=== PATIENT | female | born 1975 | race Caucasian/White ===

== ENCOUNTER 2016-11-19 16:18 | Emergency (ER) | payer SELFPAY ==
[2016-11-19 16:37] VITALS: O2SAT 94
[2016-11-19] MEDS ORDERED: LIDOCAINE VIS-MYLANTA 30 ML UD PO ONE (16:52)
[2016-11-19] MEDS ORDERED: MORPHINE SULFATE INJ 10 MG/ML VIAL IV ONE (17:40)
[2016-11-19] MEDS ORDERED: SIMETHICONE 40 MG/0.6 ML PO ONE (17:42)
--- NOTE | 2016-11-19 18:02 | RAD ---
EXAM DESCRIPTION: Chest,1 View CLINICAL HISTORY: 41 years, Female, Fell out of 20 ft deer stand. COMPARISON: Images only from a Two-view chest x-ray dated 05/24/2014. FINDINGS: An upright portable frontal chest radiograph was performed. The lungs are moderately expanded and clear aside from scarring in the LEFT lower lung, similar to the prior study. The costophrenic sulci are sharp. The cardiac silhouette, hilar regions, trachea, soft tissues and bony structures are unremarkable. In particular, no rib fracture is identified. No pneumothorax is seen. Images are degraded by portable technique and large patient body habitus. IMPRESSION: No evidence of acute traumatic thoracic injury. LEFT lung scarring. Electronically signed by: Trina Daily MD 11/19/2016 6:00 PM ELECTROMEDICAL EQUIPMENT REPAIRER
[2016-11-19] MEDS ORDERED: SIMETHICONE 80 MG TAB ONE (18:34)
[2016-11-19] MEDS ORDERED: SIMETHICONE 80 MG TAB PO ONE (18:38)
[2016-11-19] MEDS ORDERED: OMEPRAZOLE CAP 20 MG CAP PO ONE (19:12)
[2016-11-19] MEDS ORDERED: diazePAM INJ 10 MG/2 ML SYG IV ONE (19:23)
--- NOTE | 2016-11-19 19:29 | ED.PDOC ---
History of Present Illness - General Chief Complaint: General Stated Complaint: pain when swallowing Time Seen by Provider: 11/19/16 17:22 Source: patient, family Exam Limitations: no limitations Additional Information: ONSET YESTERDAY. EPIGASTRIC PAIN WHEN SWALLOWS (6/10). 4/10 PAIN AT REST. TRIED ZANTAC, ROLAIDS, MAALOX; NONE HELPED. PT STATES SHE FEELS THOUGH THERE I8S A MASS IN HER LOWER STERNUM. FEELS THOUGH FOOD WILL GET STUCK BUT IT DOES NOT. NO VOMITING. NO H/O GERD. IS PASSING NL FLATULENCE, BELCHING, HAD NL BM THIS AM. - History of Present Illness Improving Factors: nothing Worsening Factors: eating Associated Symptoms: denies symptoms Allergies/Adverse Reactions: Allergies Ciprofloxacin [From Cipro] Allergy (Verified 03/13/16 15:59) Hydromorphone [From Dilaudid] Allergy (Verified 03/13/16 15:59) Nalbuphine [From Nubain] Allergy (Verified 03/13/16 15:59) Promethazine [From Phenergan] Allergy (Verified 03/13/16 15:59) Sulfamethoxazole w/Trimethoprim [From Bactrim] Allergy (Verified 03/13/16 15:59) Home Medications: Ambulatory Orders ALPRAZolam [Xanax] 1 mg PO TID PRN 06/27/13 Phentermine HCl 37.5 mg PO DAILY 03/13/16 Tramadol HCl 50 mg PO PRN 03/13/16 Triamterene & Hydrochlorothiaz [Dyazide 37.5-25 mg] 1 cap PO DAILY 03/13/16 Dicyclomine HCl [Bentyl] 20 mg PO PRN 11/19/16 Fluoxetine HCl [PROzac] 20 mg PO DAILY 11/19/16 Review of Systems - Review of Systems Constitutional: States: no symptoms reported EENTM: Denies: ear pain, nose congestion, throat swelling, mouth pain, mouth swelling Respiratory: Denies: cough, short of breath, stridor, wheezing Cardiology: States: no symptoms reported Gastrointestinal/Abdominal: Denies: abdominal pain, constipation, diarrhea, nausea, vomiting Genitourinary: States: no symptoms reported Musculoskeletal: States: no symptoms reported Skin: States: no symptoms reported Neurological: States: no symptoms reported Endocrine: States: no symptoms reported Hematologic/Lymphatic: States: no symptoms reported All other Systems: Reviewed and Negative Past Medical History (General) - Patient Medical History Hx Stroke: No Hx Asthma: Yes Hx Congestive Heart Failure: Yes Hx Hypertension: Yes Hx Thyroid Disease: No Hx Diabetes: No Surgical History: cholecystectomy, Hysterectomy - Vaccination History Hx Tetanus, Diphtheria Vaccination: Yes Hx Influenza Vaccination: No Hx Pneumococcal Vaccination: No - Social History Hx Tobacco Use: No Hx Alcohol Use: Yes Hx Depression: Yes - Female History Patient : No - hysterectomy Family Medical History - Family History Mother Family History: Unknown Hx Cardiac Disease: Yes Hx Family Diabetes: Yes Physical Exam - Physical Exam General Appearance: Anxious - ANXIOUS D/T PAIN. NO RESPIRATORY DISTRESS., Well Nourished Eye Exam: bilateral normal Ears, Nose, Throat: hearing grossly normal, normal ENT inspection, normal pharynx Neck: non-tender, full range of motion, supple Respiratory: chest non-tender, lungs clear, normal breath sounds Cardiovascular/Chest: normal peripheral pulses, regular rate, rhythm, other - STERNUM NTTP. Gastrointestinal/Abdominal: normal bowel sounds, non tender, soft, no organomegaly, no pulsatile mass, other - OBESE. 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 THUS GAVE MORPHINE AND SIMETHICONE. DIDN'T HELP. EKG, CXR, CBC, CMP, TROP NEG. PAIN PERSISTED DESPITE ABOVE TX AND PT STATED SHE IS CONVINCED THERE IS SOMETHING WRONG SUCH A MASS IN INFERIOR STERNUM/EPIGASTRIC, THUS ORDERED CT OF CHEST AND ABD, WAS NEG. GAVE OMEPRAZOLE AND VALIUM, WHICH DECREASED PAIN AT REST FROM 4/10 TO 0/10 ( PAIN WITH SWALLOWING STILL 6/10). DDX: EPHAGEAL CANCER VS GERD VS ACHALASIA VS EOSINOPHILIC ESPHAGITIS VS ESOPHAGEAL STRICTURE VS POTTER'S VS ESOPHAGEAL/GASTRIC ULCER. ETX UNCLEAR FROM EXTENSIVE E.D. WORKUP, THUS REFERRED TO Kathy AND INFORMED PT SHE WILL NEED AND EGD TO VISUALIZE. PT PREFERS TO SEE THE GI DR IN [place] WHERE SHE LIVES AND SAID SHE WILL CONTACT HIM. SAFE FOR DC TO HOME. 11/19/16 20:56 Departure - Departure Clinical Impression: Spasm of esophagus, Epigastric pain Disposition: Discharge to Home or Self Care Condition: Fair Departure Forms: ED Discharge - Pt. Copy, Patient Portal Self Enrollment Instructions: Esophageal Dysphagia Diet: other - Drink plenty of fluids but don't worry about eating a lot of meals until this improves. Activity: increase activity as tolerated Home Medications: Ambulatory Orders ALPRAZolam [Xanax] 1 mg PO TID PRN 06/27/13 Phentermine HCl 37.5 mg PO DAILY 03/13/16 Tramadol HCl 50 mg PO PRN 03/13/16 Triamterene & Hydrochlorothiaz [Dyazide 37.5-25 mg] 1 cap PO DAILY 03/13/16 Dicyclomine HCl [Bentyl] 20 mg PO PRN 11/19/16 Fluoxetine HCl [PROzac] 20 mg PO DAILY 11/19/16 Additional Instructions: Please see the [facility] doctor in [place] or your regular doctor. Please take Nexium 40 mg daily to see if it will help ease the discomfort. Please avoid ibuprofen, aleve, advil, and motrin, as they can cause stomach and esophageal pain. Tylenol is okay.
--- NOTE | 2016-11-19 20:08 | CT ---
EXAM: Abdoment/Pelvis w/o Contrast (accession [id number]), Chest w/o Contrast (accession [id number]) CLINICAL INDICATION: 41 year-old female with acute sternal and epigastric pain. COMPARISON: None. EXAMINATION: CT of the chest, abdomen and pelvis was performed without intravenous or oral contrast. Multiplanar reformatted images were provided. FINDINGS: Evaluation of solid organ pathology is limited secondary to lack of intravenous contrast. Within these limitations, the following observations are made. Chest: Evaluation through the lungs reveal no focal opacity, pleural effusion or pneumothorax. Heart size is within normal limits. No pericardial effusion. Abdomen and pelvis: Borderline hepatomegaly measuring 19.6 cm and diffuse hepatic steatosis. The liver, pancreas, spleen, bilateral kidneys and bilateral adrenal glands are otherwise within normal limits. Surgical clips present at the level of the gallbladder fossa status post cholecystectomy. The vessels are normal in caliber. No abdominopelvic lymph nodes are noted to be pathologically enlarged by CT measurement criteria. The bowel is within normal limits with extensive fecal debris present throughout the large bowel. There is no abnormal bowel wall thickness or bowel dilation. No free air. No free abdominopelvic fluid collections. The appendix is within normal limits. The osseous structures are within normal limits. Nonspecific slight prominence of the level of the right side anus. No surrounding inflammatory change to suggest abscess formation. IMPRESSION: 1. No specific acute intra-abdominal findings are noted to suggest etiology of the patient's abdominal pain.2. Borderline hepatomegaly and diffuse hepatic steatosis.3. Nonspecific slight prominence of the level of the right side anus. Electronically signed by: Janet Fernandez MD 11/19/2016 8:07 PM POULTRY PROCESSOR
[2016-11-19 21:09] VITALS: BP 122/87; TEMP 97
--- NOTE | 2016-11-23 14:09 | CT ---
EXAM: Abdoment/Pelvis w/o Contrast (accession [id number]), Chest w/o Contrast (accession [id number]) CLINICAL INDICATION: 41 year-old female with acute sternal and epigastric pain. COMPARISON: None. EXAMINATION: CT of the chest, abdomen and pelvis was performed without intravenous or oral contrast. Multiplanar reformatted images were provided. FINDINGS: Evaluation of solid organ pathology is limited secondary to lack of intravenous contrast. Within these limitations, the following observations are made. Chest: Evaluation through the lungs reveal no focal opacity, pleural effusion or pneumothorax. Heart size is within normal limits. No pericardial effusion. Abdomen and pelvis: Borderline hepatomegaly measuring 19.6 cm and diffuse hepatic steatosis. The liver, pancreas, spleen, bilateral kidneys and bilateral adrenal glands are otherwise within normal limits. Surgical clips present at the level of the gallbladder fossa status post cholecystectomy. The vessels are normal in caliber. No abdominopelvic lymph nodes are noted to be pathologically enlarged by CT measurement criteria. The bowel is within normal limits with extensive fecal debris present throughout the large bowel. There is no abnormal bowel wall thickness or bowel dilation. No free air. No free abdominopelvic fluid collections. The appendix is within normal limits. The osseous structures are within normal limits. Nonspecific slight prominence of the level of the right side anus. No surrounding inflammatory change to suggest abscess formation. IMPRESSION: 1. No specific acute intra-abdominal findings are noted to suggest etiology of the patient's abdominal pain.2. Borderline hepatomegaly and diffuse hepatic steatosis.3. Nonspecific slight prominence of the level of the right side anus. Electronically signed by: Janet Fernandez MD 11/19/2016 8:07 PM TAPING MACHINE OPERATOR
--- NOTE | 2016-12-17 23:48 | CT ---
EXAM: Abdoment/Pelvis w/o Contrast (accession [id number]), Chest w/o Contrast (accession [id number]) CLINICAL INDICATION: 41 year-old female with acute sternal and epigastric pain. COMPARISON: None. EXAMINATION: CT of the chest, abdomen and pelvis was performed without intravenous or oral contrast. Multiplanar reformatted images were provided. FINDINGS: Evaluation of solid organ pathology is limited secondary to lack of intravenous contrast. Within these limitations, the following observations are made. Chest: Evaluation through the lungs reveal no focal opacity, pleural effusion or pneumothorax. Heart size is within normal limits. No pericardial effusion. Abdomen and pelvis: Borderline hepatomegaly measuring 19.6 cm and diffuse hepatic steatosis. The liver, pancreas, spleen, bilateral kidneys and bilateral adrenal glands are otherwise within normal limits. Surgical clips present at the level of the gallbladder fossa status post cholecystectomy. The vessels are normal in caliber. No abdominopelvic lymph nodes are noted to be pathologically enlarged by CT measurement criteria. The bowel is within normal limits with extensive fecal debris present throughout the large bowel. There is no abnormal bowel wall thickness or bowel dilation. No free air. No free abdominopelvic fluid collections. The appendix is within normal limits. The osseous structures are within normal limits. Nonspecific slight prominence of the level of the right side anus. No surrounding inflammatory change to suggest abscess formation. IMPRESSION: 1. No specific acute intra-abdominal findings are noted to suggest etiology of the patient's abdominal pain.2. Borderline hepatomegaly and diffuse hepatic steatosis.3. Nonspecific slight prominence of the level of the right side anus. Electronically signed by: Janet Fernandez MD 11/19/2016 8:07 PM CLASSROOM MONITOR
--- NOTE | 2016-12-17 23:48 | CT ---
EXAM: Abdoment/Pelvis w/o Contrast (accession [id number]), Chest w/o Contrast (accession [id number]) CLINICAL INDICATION: 41 year-old female with acute sternal and epigastric pain. COMPARISON: None. EXAMINATION: CT of the chest, abdomen and pelvis was performed without intravenous or oral contrast. Multiplanar reformatted images were provided. FINDINGS: Evaluation of solid organ pathology is limited secondary to lack of intravenous contrast. Within these limitations, the following observations are made. Chest: Evaluation through the lungs reveal no focal opacity, pleural effusion or pneumothorax. Heart size is within normal limits. No pericardial effusion. Abdomen and pelvis: Borderline hepatomegaly measuring 19.6 cm and diffuse hepatic steatosis. The liver, pancreas, spleen, bilateral kidneys and bilateral adrenal glands are otherwise within normal limits. Surgical clips present at the level of the gallbladder fossa status post cholecystectomy. The vessels are normal in caliber. No abdominopelvic lymph nodes are noted to be pathologically enlarged by CT measurement criteria. The bowel is within normal limits with extensive fecal debris present throughout the large bowel. There is no abnormal bowel wall thickness or bowel dilation. No free air. No free abdominopelvic fluid collections. The appendix is within normal limits. The osseous structures are within normal limits. Nonspecific slight prominence of the level of the right side anus. No surrounding inflammatory change to suggest abscess formation. IMPRESSION: 1. No specific acute intra-abdominal findings are noted to suggest etiology of the patient's abdominal pain.2. Borderline hepatomegaly and diffuse hepatic steatosis.3. Nonspecific slight prominence of the level of the right side anus. Electronically signed by: Janet Fernandez MD 11/19/2016 8:07 PM REMOTE ENCODING CENTER MANAGER
--- NOTE | 2016-12-18 08:23 | CT ---
EXAM: Abdoment/Pelvis w/o Contrast (accession [id number]), Chest w/o Contrast (accession [id number]) CLINICAL INDICATION: 41 year-old female with acute sternal and epigastric pain. COMPARISON: None. EXAMINATION: CT of the chest, abdomen and pelvis was performed without intravenous or oral contrast. Multiplanar reformatted images were provided. FINDINGS: Evaluation of solid organ pathology is limited secondary to lack of intravenous contrast. Within these limitations, the following observations are made. Chest: Evaluation through the lungs reveal no focal opacity, pleural effusion or pneumothorax. Heart size is within normal limits. No pericardial effusion. Abdomen and pelvis: Borderline hepatomegaly measuring 19.6 cm and diffuse hepatic steatosis. The liver, pancreas, spleen, bilateral kidneys and bilateral adrenal glands are otherwise within normal limits. Surgical clips present at the level of the gallbladder fossa status post cholecystectomy. The vessels are normal in caliber. No abdominopelvic lymph nodes are noted to be pathologically enlarged by CT measurement criteria. The bowel is within normal limits with extensive fecal debris present throughout the large bowel. There is no abnormal bowel wall thickness or bowel dilation. No free air. No free abdominopelvic fluid collections. The appendix is within normal limits. The osseous structures are within normal limits. Nonspecific slight prominence of the level of the right side anus. No surrounding inflammatory change to suggest abscess formation. IMPRESSION: 1. No specific acute intra-abdominal findings are noted to suggest etiology of the patient's abdominal pain.2. Borderline hepatomegaly and diffuse hepatic steatosis.3. Nonspecific slight prominence of the level of the right side anus. Electronically signed by: Janet Fernandez MD 11/19/2016 8:07 PM SIEBEL ARCHITECT
--- NOTE | 2016-12-18 08:23 | CT ---
EXAM: Abdoment/Pelvis w/o Contrast (accession [id number]), Chest w/o Contrast (accession [id number]) CLINICAL INDICATION: 41 year-old female with acute sternal and epigastric pain. COMPARISON: None. EXAMINATION: CT of the chest, abdomen and pelvis was performed without intravenous or oral contrast. Multiplanar reformatted images were provided. FINDINGS: Evaluation of solid organ pathology is limited secondary to lack of intravenous contrast. Within these limitations, the following observations are made. Chest: Evaluation through the lungs reveal no focal opacity, pleural effusion or pneumothorax. Heart size is within normal limits. No pericardial effusion. Abdomen and pelvis: Borderline hepatomegaly measuring 19.6 cm and diffuse hepatic steatosis. The liver, pancreas, spleen, bilateral kidneys and bilateral adrenal glands are otherwise within normal limits. Surgical clips present at the level of the gallbladder fossa status post cholecystectomy. The vessels are normal in caliber. No abdominopelvic lymph nodes are noted to be pathologically enlarged by CT measurement criteria. The bowel is within normal limits with extensive fecal debris present throughout the large bowel. There is no abnormal bowel wall thickness or bowel dilation. No free air. No free abdominopelvic fluid collections. The appendix is within normal limits. The osseous structures are within normal limits. Nonspecific slight prominence of the level of the right side anus. No surrounding inflammatory change to suggest abscess formation. IMPRESSION: 1. No specific acute intra-abdominal findings are noted to suggest etiology of the patient's abdominal pain.2. Borderline hepatomegaly and diffuse hepatic steatosis.3. Nonspecific slight prominence of the level of the right side anus. Electronically signed by: Janet Fernandez MD 11/19/2016 8:07 PM FUR OPERATOR
== END 2016-11-19 21:08 | disposition home or self-care (01) ==
LOC: ER 16:18
DX: K22.4 Dyskinesia of esophagus (principal); R10.13 Epigastric pain; Z88.3 Allergy status to other anti-infective agents; Z88.2 Allergy status to sulfonamides; Z88.6 Allergy status to analgesic agent; Z79.899 Other long term (current) drug therapy; I11.0 Hypertensive heart disease with heart failure; I50.9 Heart failure, unspecified; J45.909 Unspecified asthma, uncomplicated
CPT/HCPCS: 71010; 71250; 74176; 80053; 84484; 85025; 93005; J2270; J3360

== ENCOUNTER 2017-02-08 20:56 | Emergency (ER) | payer SELFPAY ==
[2017-02-08 22:16] VITALS: BP 129/75; TEMP 99; O2SAT 97
[2017-02-09] MEDS ORDERED: SODIUM CHLORIDE 0.9% 1000ML 1,000 ML IVS ONE (01:32)
[2017-02-09] MEDS ORDERED: POTASSIUM CHLORIDE 20 MEQ TAB PO ONE (01:32)
--- NOTE | 2017-02-09 02:25 | RAD ---
EXAM: Acute abdominal series. INDICATION: Abdominal pain, acute. COMPARISON: 05/24/2014. FINDINGS: Cardiac silhouette: Unremarkable. Lacie: Unremarkable. Lobar consolidation: None. Pleural effusion: None. Pneumothorax: None. Other: Cholecystectomy clips are noted Intraperitoneal free air: Negative. Bowel: No dilated loops of small bowel or air-fluid levels. Bones: Unremarkable. Other: None. IMPRESSION: 1. Nonspecific, nonobstructed bowel gas pattern. Electronically signed by: Farhad Finnegan MD 02/09/2017 2:24 AM CDT
[2017-02-09] MEDS ORDERED: PROCHLORPERAZINE INJ 10 MG/2 ML VIAL IV ONE (02:35)
--- NOTE | 2017-02-09 03:17 | ED.PDOC ---
History of Present Illness - General Chief Complaint: General Stated Complaint: body aches Time Seen by Provider: 02/08/17 22:22 Source: patient, RN notes reviewed, Vital Signs reviewed Exam Limitations: no limitations - History of Present Illness Initial Comments: Patient is a 41 y/o female who started feeling badly two days ago. Yesterday she started running fever--over 102. She has had diarrhea since yesterday as well. She denies any abdominal pain or nausea. She has myalgias. Patient reports that she has been bitten three times by ticks in the past 2 weeks. One of them made a red mathew on her thigh which has now resolved. She denies any rashes. Timing/Duration: getting worse, other - 2 days Severity: moderate, severe Improving Factors: nothing Worsening Factors: eating Associated Symptoms: fever/chills, headaches, weakness, other - diarrhea Allergies/Adverse Reactions: Allergies Ciprofloxacin [From Cipro] Allergy (Verified 03/13/16 15:59) Hydromorphone [From Dilaudid] Allergy (Verified 03/13/16 15:59) Nalbuphine [From Nubain] Allergy (Verified 03/13/16 15:59) Promethazine [From Phenergan] Allergy (Verified 03/13/16 15:59) Sulfamethoxazole w/Trimethoprim [From Bactrim] Allergy (Verified 03/13/16 15:59) Home Medications: Ambulatory Orders ALPRAZolam [Xanax] 1 mg PO TID PRN 06/27/13 Phentermine HCl 37.5 mg PO DAILY 03/13/16 Tramadol HCl 50 mg PO PRN 03/13/16 Triamterene & Hydrochlorothiaz [Dyazide 37.5-25 mg] 1 cap PO DAILY 03/13/16 Dicyclomine HCl [Bentyl] 20 mg PO PRN 11/19/16 Fluoxetine HCl [PROzac] 20 mg PO DAILY 11/19/16 Doxycycline Hyclate 100 mg PO BID #28 cap 02/09/17 Review of Systems - Review of Systems Constitutional: States: chills, fever, malaise, weakness EENTM: States: no symptoms reported Respiratory: States: no symptoms reported Cardiology: States: no symptoms reported Gastrointestinal/Abdominal: States: diarrhea. Denies: abdominal pain, nausea, vomiting Genitourinary: States: no symptoms reported Musculoskeletal: States: muscle pain, muscle stiffness Skin: States: no symptoms reported Neurological: States: no symptoms reported Endocrine: States: no symptoms reported Hematologic/Lymphatic: States: no symptoms reported All other Systems: Reviewed and Negative Past Medical History (General) - Patient Medical History Hx Stroke: No Hx Asthma: Yes Hx Congestive Heart Failure: Yes Hx Hypertension: Yes Hx Thyroid Disease: No Hx Diabetes: No Surgical History: cholecystectomy, Hysterectomy - Vaccination History Hx Tetanus, Diphtheria Vaccination: Yes Hx Influenza Vaccination: No Hx Pneumococcal Vaccination: No Immunizations Up to Date: Yes - Social History Hx Tobacco Use: No Hx Alcohol Use: No Hx Depression: Yes - Activities of Daily Living Hospice Agency (if applicable):: None - Female History Patient is a Female of Child Bearing Age (10 -59 yrs old): Yes Patient : No - hysterectomy Family Medical History - Family History Mother Family History: Unknown Living Status: Unknown Hx Cardiac Disease: Yes Hx Family Diabetes: Yes Physical Exam - Physical Exam General Appearance: Comfortable, No apparent distress Ears, Nose, Throat: hearing grossly normal, normal ENT inspection Neck: full range of motion - But with pain., supple, tender lateral Respiratory: lungs clear, normal breath sounds, no respiratory distress, no accessory muscle use Cardiovascular/Chest: normal peripheral pulses, regular rate, rhythm, no edema, no gallop, no murmur Gastrointestinal/Abdominal: non tender, soft, no organomegaly, abnormal bowel sounds - hyperactive Back Exam: no CVA tenderness Extremity: normal range of motion Neurologic: alert, normal mood/affect, oriented x 3 Skin Exam: normal color, warm/dry Progress - Progress Progress: 02/09/17 04:21 Although Patient does not have a rash or the typical rash found in Lyme disease , because she was bitten by ticks and she now has symptoms, I will treat her with Doxycycline. We have sent out labs for Lyme disease. Patient will follow up with her PCP or in the ED if her symtpoms worsen. - Results/Orders Results/Orders: 02/08/17 22:10 Temperature 99.0 F Pulse Rate [ 89 right] Respiratory 18 Rate Blood Pressure 129/75 [right] O2 Sat by Pulse 97 Oximetry 02/09/17 03:09 LYME DIEASE AB TOTAL W/WB Stat Laboratory Results WBC 9.4 K/mm3 (4.8-10.8) 02/08/17 22:35 RBC 4.90 M/mm3 (4.20-5.40) 02/08/17 22:35 Hgb 13.7 gm/dL (12.0-16.0) 02/08/17 22:35 Hct 40.7 % (36.0-47.0) 02/08/17 22:35 MCV 83.0 fl (81.0-99.0) 02/08/17 22: MCH 27.9 pg (27.0-31.0) 02/08/17 22: MCHC 33.6 g/dL (33.0-37.0) 02/08/17 22: RDW 13.6 % (11.5-14.5) 02/08/17: Plt Count 298 K/mm3 (130-400) 02/08/17 22:35 MPV 7.8 fl (7.40-10.4) 02/08/17 22:35 Absolute Neuts (auto) 6.80 K/uL (1.8-6.8) 02/08/17 22:35 Absolute Lymphs (auto) 1.70 K/uL (1.0-3.4) 02/08/17 22:35 Absolute Monos (auto) 0.70 K/uL (0.2-0.8) 02/08/17:35 Absolute Eos (auto) 0.10 K/uL (0.0-0.4) 02/08/17:35 Absolute Basos (auto) 0.00 K/uL (0.0-0.1) 02/08/17 22:35 Neutrophils % 72.9 % (42.0-78.0) 02/08/17 22: Lymphocytes % 18.5 % (20.0-50.0) L 02/08/17 22: Monocytes % 7.5 % (2.0-9.0) 02/08/17: Eosinophils % 0.6 % (1.0-5.0) L 02/08/17 22: Basophils % 0.5 % (0.0-2.0) 02/08/17 22:35 Sodium 140 mmol/L (135-145) 02/08/17 22:35 Potassium 3.0 mmol/L (3.6-5.0) L 02/08/17 22:35 Chloride 106 mmol/L (101-111) 02/08/17 22:35 Carbon Dioxide 24 mmol/L (21-31) 02/08/17 22:35 Anion Gap 13.0 (12-18) 02/08/17 22:35 BUN 15 mg/dL (7-18) 02/08/17 22:35 Creatinine 0.47 mg/dL (0.6-1.3) L 02/08/17 22:35 BUN/Creatinine Ratio 31.9 (10-20) H 02/08/17 22:35 Random Glucose 112 mg/dL (70-105) H 02/08/17 22:35 Serum Osmolality 281.0 mOsm/L (275-295) 02/08/17 22:35 Calcium 9.7 mg/dL (8.4-10.2) 02/08/17 22:35 Total Bilirubin 0.5 mg/dL (0.2-1.0) 02/08/17 22:35 AST 27 IU/L (10-42) 02/08/17 22:35 ALT 35 IU/L (10-60) 02/08/17 22:35 Alkaline Phosphatase 70 IU/L (42-121) 02/08/17 22:35 Serum Total Protein 8.3 gm/dL (6.4-8.2) H 02/08/17 22:35 Albumin 4.5 g/dl (3.2-5.5) 02/08/17 22:35 Globulin 3.8 gm/dL (2.3-3.5) H 02/08/17 22:35 Albumin/Globulin Ratio 1.2 (1.1-1.9) 02/08/17 22:35 Urine Color Yellow (Yellow) 02/08/17 22:40 Urine Appearance Clear (Clear) 02/08/17 22:40 Urine pH 6.0 (4.5-7.8) 02/08/17 22:40 Ur Specific [place] >= 1.030 (1.005-1.030) 02/08/17 22:40 Urine Protein Trace mg/dL 02/08/17 22:40 Urine Glucose (UA) Negative mg/dL (Negative) 02/08/17 22:40 Urine Ketones Negative mg/dL (NEGATIVE) 02/08/17 22:40 Urine Blood Trace-intact (Negative) H 02/08/17 22:40 Urine Nitrite Negative 02/08/17 22:40 Urine Bilirubin Negative (NEGATIVE) 02/08/17 22:40 Urine Urobilinogen 0.2 mg/dL (0.2-1.0) 02/08/17 22:40 Ur Leukocyte Esterase Negative (Negative) 02/08/17 22:40 Urine RBC 1-3 /hpf 02/08/17 22:40 Urine WBC 0-1 /hpf 02/08/17 22:40 Ur Epithelial Cells 1-3 /hpf 02/08/17 22:40 Urine Bacteria Rare 02/08/17 22:40 - EKG/XRAY/CT XRAY: abdomen Xray Comments: Normal bowel gas pattern Departure - Departure Clinical Impression: Diarrhea, Hypokalemia, gastrointestinal losses, Tick bite Fever Qualifiers: Fever type: unspecified Qualified Code(s): R50.9 - Fever, unspecified Time of Disposition: 04:24 Disposition: Discharge to Home or Self Care Condition: Fair Departure Forms: ED Discharge - Pt. Copy, Patient Portal Self Enrollment Instructions: DI for Hypokalemia, Hypokalemia, DI for Diarrhea and Traveler's Diarrhea -- Adult Diet: resume usual diet Prescriptions: Doxycycline Hyclate 100 mg PO BID #28 cap Home Medications: Ambulatory Orders ALPRAZolam [Xanax] 1 mg PO TID PRN 06/27/13 Phentermine HCl 37.5 mg PO DAILY 03/13/16 Tramadol HCl 50 mg PO PRN 03/13/16 Triamterene & Hydrochlorothiaz [Dyazide 37.5-25 mg] 1 cap PO DAILY 03/13/16 Dicyclomine HCl [Bentyl] 20 mg PO PRN 11/19/16 Fluoxetine HCl [PROzac] 20 mg PO DAILY 11/19/16 Doxycycline Hyclate 100 mg PO BID #28 cap 02/09/17 Additional Instructions: Follow up with PCP in 3-5 days or sooner if symptoms persist. Follow up in ED if symptoms worsen. Alternate ibuprofen and Tylenol for fever/pain. Stay well- hydrated.
[2017-02-09] MEDS ORDERED: DOXYCYCLINE HYCLATE CAP 100 MG CAP PO ONE (04:28)
== END 2017-02-09 04:56 | disposition home or self-care (01) ==
LOC: ER 20:56
DX: R19.7 Diarrhea, unspecified (principal); E87.6 Hypokalemia; S70.369A Insect bite (nonvenomous), unspecified thigh, initial encounter; I11.0 Hypertensive heart disease with heart failure; I50.9 Heart failure, unspecified; J45.909 Unspecified asthma, uncomplicated; Z88.2 Allergy status to sulfonamides; Z88.3 Allergy status to other anti-infective agents; Z88.6 Allergy status to analgesic agent; Z79.899 Other long term (current) drug therapy; W57.XXXA Bitten or stung by nonvenomous insect and other nonvenomous arthropods, initial encounter; Y92.9 Unspecified place or not applicable
CPT/HCPCS: 36415; 74020; 80053; 81001; 85025; 87449; 87502; J0780; J7030

== ENCOUNTER → 2017-02-24 | Outpatient (CLI) | payer SELFPAY | LOC: YCFC.O 08:59 | PROVIDERS: ATTEND Family Medicine | DX: R50.9 Fever, unspecified (principal); R51 Headache ==

== ENCOUNTER → 2017-03-08 | Outpatient (CLI) | payer SELFPAY | END | disposition home or self-care (01) | LOC: YCFC.O 12:45 | PROVIDERS: ATTEND Nurse Practitioner Family | DX: R73.9 Hyperglycemia, unspecified (principal) ==